=== PATIENT | female | born 2005 | race Hispanic/Latino ===

== ENCOUNTER 2023-02-06 17:04 | Emergency (ER) | payer BC | END 2023-02-06 20:19 | disposition home or self-care (01) | LOC: ERS 17:04 | DX: S93.401A Sprain of unspecified ligament of right ankle, initial encounter (principal); W10.9XXA Fall (on) (from) unspecified stairs and steps, initial encounter ==

== ENCOUNTER 2025-10-01 10:42 | Emergency (ER) | payer BC ==
[2025-10-01] MEDS ORDERED: Ondansetron PF 4 MG/2 ML Vial ONE (11:31)
[2025-10-01 11:51] LABS: #Basophils 0.04 10x3/uL (0.0-0.2); #Eosinophils 0.11 10x3/uL (0.0-0.7); #Monocytes 0.52 10x3/uL (0.11-0.59); #Neutrophils 6.32 10x3/uL (1.40-6.50); %Basophils 0.5 % (0.0-1.0); %Eosinophils 1.3 % (0.0-10.0); %Lymphocytes 16.6 % (21.0-51.0); %Monocytes 6.2 % (0.0-10.0); %Neutrophils 75.2 % (42.0-75.0); Hematocrit 38.5 % (36.0-47.0); Hemoglobin 13.2 g/dL (12.0-16.0); Mean Corpuscular Hemoglobin 30.3 pg (27.0-31.0); Mean Corpuscular Volume 88.5 fL (78.0-98.0); Platelet Count 315 10x3/uL (130-400); Red Blood Cell (RBC) Count 4.35 mill/uL (4.20-5.40); White Blood Cell (WBC) Count 8.41 10x3/uL (4.8-10.8)
[2025-10-01 12:03] LABS: Bacteria/HPF None Seen HPF (None Seen); CAUTI Indications for Culture Pelvic or flank pain; Glucose, Urine (Dipstick) Normal (Negative); Leukocyte 250 Leu/uL (Negative); Protein, Urine (Dipstick) Negative (Neg-Trace); RBC/HPF 0-3 HPF (0-3); Specific Gravity, Urine 1.024 (1.002-1.036); WBC/HPF 0-3 HPF (0-3)
[2025-10-01 12:07] LABS: Urine Culture Reflex No No
[2025-10-01 12:15] LABS: BHCG - Serum Negative (NEGATIVE); Pregs Control Background? CLEAR/WHITE (CLR/WHITE); Pregs Control Bar Appear? YES (CONTROL BAR)
[2025-10-01 12:16] LABS: Lipase 54.0 U/L (8-78)
[2025-10-01 12:17] LABS: CRP, High Sensitivity at Bryan 4.22 mg/dL (< or = 0.5)
[2025-10-01 12:19] LABS: ALT (SGPT) 13 U/L (Less than 34); AST (SGOT) 27 U/L (11-34); Albumin 4.2 g/dL (3.1-4.5); Alkaline Phosphatase 73 U/L (40-110); Anion Gap 18 mmol/L (10-20); BUN (Urea Nitrogen) 11 mg/dL (7.0-18.7); Bilirubin, Total 0.9 mg/dL (0.3-1.2); Calc. Creatinine Clearance 0 mL/min (70-130); Calcium 9.7 mg/dL (7.8-10.44); Carbon Dioxide 23 mmol/L (22-29); Chloride 104 mmol/L (98-107); Globulin 4.1 g/dL (2.4-3.5); Glucose 77 mg/dL (70-105); Potassium 4.5 mmol/L (3.5-5.1); Sodium 140 mmol/L (136-145)
[2025-10-01] MEDS ORDERED: Sulfameth/Trimethoprim DS 800-160mg TAB ONE (13:28)
[2025-10-01] MEDS ORDERED: Cephalexin 250 MG CAP ONE (13:29)
[2025-10-01] MEDS ORDERED: Iopamidol-370 76% 500 ML MDV (1 ML CHARGE) ONE (13:59)
== END 2025-10-01 13:36 | disposition home or self-care (01) ==
LOC: ERS 10:42
DX: L03.316 Cellulitis of umbilicus (principal)
CPT/HCPCS: 74177; 80053; 81001; 83690; 84703; 85025; 86141; 87081; 87428; 87430; 96374; 96375; J2405